=== PATIENT | male | born 1950 | race Caucasian/White ===

== ENCOUNTER 2017-12-02 22:30 | Emergency (ER) | payer OTHER ==
[2017-12-02 22:37] VITALS: BP 135/83; PULSE 112; TEMP 100.5; BMI 30.7
--- NOTE | 2017-12-02 22:38 | PDOC ---
History of Present Illness - General Chief Complaint: Respiratory Stated Complaint: COUGH,FEVER Time Seen by Provider: 12/02/17 22:32 History Source: Patient Exam Limitations: No Limitations - History of Present Illness Initial Comments: 12/02/17 22:38 This is a 67-year-old male who comes in complaining of cough, congestion and fever. Patient said symptoms began on 2 days ago with the cough and congestion. Patient went to an urgent care center today and was started on azithromycin. Patient now developed a fever this evening for the first time and so, as in because he is concerned it may be the influenza. Patient otherwise denies any complaints. PAST MEDICAL HISTORY: no significant history PAST SURGICAL HISTORY: no significant history FAMILY HISTORY: no pertinant history SOCIAL HISTORY: Pt lives with family and is employed. MEDICATIONS: reviewed ALLERGIES: As per nursing notes Review of Systems General: No fevers or chills, no weakness, no weight loss HEENT: No change in vision. No sore throat,. No ear pain CardioVascular: No chest pain or shortness of breath Respiratory:No cough, or wheezing. Gastrointestinal: no nausea, vomitting, diarrhea or constipation, No rectal bleeding Genitourinary: No dysuria, hematuria, or frequency Musculoskeletal: No joint or muscle pain or swelling Neurologic: No headache, vertigo, dizziness or loss of consciousness Psychiatric: nor depression Skin: No rashes or easy bruising Endocrine: no increased thirst or abnormal weight change Allergic: no skin or latex allergy All other systems reviewed and normal Exam: General: Well-nourished well-developed individual, no acute distress HEENT: Throat: Normal, tonsils normal, no erythema or exudate Neck: Supple, no meningeal signs, no lymphadenopathy Eyes::Pupils equal reactive and round, extraocular motion intact Chest: Nontender to palpation Cardiac: S1-S2 normal, regular rate and rhythm, no murmurs rubs or gallops Respiratory: Lungs clear to auscultation bilateral Extremities: Warm, dry, no cyanosis, clubbing, or edema Skin: No rashes Neuro: Alert and oriented x3, CN II - XII intact, nonfocal exam with normal strength, normal sensation, normal reflexes, normal gait, Psych: Normal mood and affect Assessment and plan: This is 7-year-old male comes in complaining of viral upper respiratory tract symptoms 2 days. Patient is on azithromycin already. Patient was at the urgent care center today and told it has a viral illness. Patient is concerned he may have the flu so a flu swab was sent and he will call in the morning for the results. If it is positive he will need a prescription for Tamiflu sent to his pharmacy Past History - Past Medical History Allergies/Adverse Reactions: Allergies Allergy/AdvReac Type Severity Reaction Status Date / Time amoxicillin [Amoxicillin] Allergy Verified 12/02/17 22:32 Home Medications: Ambulatory Orders NK [No Known Home Medication] 12/02/17 - Suicide/Smoking/Psychosocial Hx Smoking History: Unknown if ever smoked Have you smoked in the past 12 months: No Number of Cigarettes Smoked Daily: 0 Hx Alcohol Use: Yes Substance Use Type: None *DC/Admit/Observation/Transfer Diagnosis at time of Disposition: Viral upper respiratory illness - Discharge Dispostion Disposition: HOME Condition at time of disposition: Stable Admit: No - Referrals - Patient Instructions Additional Instructions: Alternate acetaminophen with Aleve every 4 hours as needed for fevers. Call in the morning [phone] for the result of your influenza test if it is positive we will call if prescription to your pharmacy for Tamiflu Continue your Z-Selwyn as prescribed. Return to the emergency department immediately with ANY new, persistent or worsening symptoms. Continue any medications as previously prescribed by your physician. You should follow up with your primary doctor as soon as possible regarding today's emergency department visit. . Please make sure your doctor reviews the results of your emergency evaluation. Thank you for coming to the Emergency Department today for your care. It was a pleasure to see you today. Please note that your evaluation is INCOMPLETE until you follow-up with your doctor. - Post Discharge Activity
== END 2017-12-02 22:44 | disposition home or self-care (01) ==
LOC: FER 22:30
DX: J06.9 Acute upper respiratory infection, unspecified (principal); B97.89 Other viral agents as the cause of diseases classified elsewhere
CPT/HCPCS: 87804; 99281-25

== ENCOUNTER 2019-04-29 02:25 | Inpatient (IN) | payer OTHER ==
[2019-04-29] MEDS: ALBUTEROL SO4 2.5/IPRATROPIUM 0.5 INH SOL 3 ML VIAL.NEB. NEB SCH ×5 (02:25→13:00)
--- NOTE | 2019-04-29 02:30 | PDOC ---
History of Present Illness - General Chief Complaint: Shortness of Breath Stated Complaint: DIFFICULTY BREATHING Time Seen by Provider: 04/29/19 02:28 History Source: Patient Exam Limitations: No Limitations - History of Present Illness Initial Comments: 04/29/19 02:37 This is a 68-year-old male who comes in complaining of some difficulty breathing. Patient said that he was diagnosed with bronchitis a few days ago and since then has had increasing difficulty breathing. On arrival in the emergency room patient was in extreme respiratory distress. Diaphoretic and tachypneic. Patient denies any prior medical history. Patient says he does not take any medications and is otherwise healthy. Allergies: as per nursing notes Past Medical History: none Social history: Lives with family. No smoking. No alcohol. No illicit drugs. Surgical history: None General: No fevers or chills, no weakness, no weight loss HEENT: No change in vision. No sore throat,. No ear pain CardioVascular: no chest discomfort. No shortness of breath Respiratory:No cough, or wheezing. Gastrointestinal: no nausea, vomiting, diarrhea or constipation, No rectal bleeding Genitourinary: No dysuria, hematuria, or frequency Musculoskeletal: No joint or muscle pain or swelling Neurologic: No headache, vertigo, dizziness or loss of consciousness Psychiatric: nor depression Skin: No rashes or easy bruising Endocrine: no increased thirst or abnormal weight change Allergic: no skin or latex allergy All other systems reviewed and normal Exam: General: Well-nourished well-developed individual, severe acute respiratory distress HEENT: Throat: Normal, tonsils normal, no erythema or exudate Neck: Supple, no meningeal signs, no lymphadenopathy Eyes::Pupils equal reactive and round, extraocular motion intact Chest: Nontender to palpation Cardiac: S1-S2 normal, regular rate and rhythm, no murmurs rubs or gallops, tachycardic Respiratory: Very poor air movement, diffuse expiratory wheezing in all breath sounds with expiratory phase much greater than inspiratory phase. + use of accessory muscles Abdomen: Soft, nondistended, normal bowel sounds, there is no tenderness on palpation diffusely Extremities: Warm, dry, no cyanosis, clubbing, or edema Skin: No rashes Neuro: Alert and oriented x3, CN II - XII intact, nonfocal exam with normal strength, normal sensation, normal reflexes, normal gait, Psych: Anxious l mood and affect 04/29/19 03:00 Patient improved respiratory rate is decreased patient is beginning to move air now still diffuse expiratory wheezing O2 sat now 99-100% on DuoNeb 03:20 Reevaluation patient's lungs much improved despite mild to moderate expiratory wheezing moving good air patient on nasal cannula 3 L with O2 sat 99%. 04/29/19 04:03 Patient much improved breathing comfortably with minimal wheezing 04/29/19 04:04 patient will be admitted to an inpatient telemetry bed Past History - Past Medical History Allergies/Adverse Reactions: Allergies Allergy/AdvReac Type Severity Reaction Status Date / Time amoxicillin [Amoxicillin] Allergy Verified 04/29/19 02:28 Home Medications: Ambulatory Orders Albuterol Sulfate Inhaler - [Ventolin Hfa Inhaler -] 1 - 2 inh PO QID 04/29/19 COPD: No - Suicide/Smoking/Psychosocial Hx Smoking History: Unknown if ever smoked Have you smoked in the past 12 months: No Number of Cigarettes Smoked Daily: 0 Hx Alcohol Use: Yes Drug/Substance Use Hx: No Substance Use Type: None ED Treatment Course - LABORATORY CBC & Chemistry Diagram: 04/29/19 02:41 04/29/19 02:41 *DC/Admit/Observation/Transfer Diagnosis at time of Disposition: Breathing difficulty - Discharge Dispostion Condition at time of disposition: Stable Decision to Admit order: Yes - Referrals - Patient Instructions - Post Discharge Activity
[2019-04-29] MEDS ORDERED: methylPREDNISolone NA SUCC 125 MG/2 ML VIAL IVPUSH ONE (02:44)
[2019-04-29 03:13] LABS: BASO % 0.6 % (0-2.0); EOS % 11.1 % (0-4.5); HEMATOCRIT 47.6 % (35.4-49); HEMOGLOBIN 15.1 GM/dL (11.7-16.9); LYMPH % 35.6 % (8-40); MCH 28.6 pg (25.7-33.7); MCHC 31.8 g/dl (32.0-35.9); MEAN PLT VOLUME 9.3 fl (7.5-11.1); MONO % 14.1 % (3.8-10.2); NEUT % 38.6 % (42.8-82.8); PLATELET COUNT 304 K/MM3 (134-434); RBC 5.29 M/mm3 (4.00-5.60); RDW 14.4 % (11.9-15.9); WHITE BLOOD COUNT 13.8 K/mm3 (4.0-10.0)
[2019-04-29 03:13] LABS: ARTERIAL BLD GAS O2 SATURATION 97.3 % (95-98); ARTERIAL BLOOD GAS BASE EXCESS -10.5 meq/l (-2-2); ARTERIAL BLOOD GAS PCO2 59.9 mmHg (35-45); ARTERIAL BLOOD GAS PO2 139 mmHg (80-105); CARBOXYHEMOGLOBIN 0.3 % (0-2)
[2019-04-29 03:16] LABS: ALLENS TEST POSITIVE
[2019-04-29 03:17] LABS: ARTERIAL BLOOD GAS pH 7.14 (7.35-7.45)
[2019-04-29 03:26] LABS: PROTHROMBIN TIME (PATIENT) 11.8 SEC (9.7-13.0)
[2019-04-29 03:35] LABS: ALBUMIN 4.2 g/dl (3.4-5.0); BILIRUBIN,TOTAL 0.6 mg/dL (0.2-1); BLOOD UREA NITROGEN 19.1 mg/dL (7-18); CALCIUM 9.1 mg/dL (8.5-10.1); CREATININE 1.4 mg/dL (0.55-1.3); POTASSIUM 3.8 mmol/L (3.5-5.1); TOT PROT 7.9 g/dl (6.4-8.2)
[2019-04-29 05:27] VITALS: BMI 31.9
[2019-04-29] MEDS ORDERED: ALBUTEROL SO4 2.5/IPRATROPIUM 0.5 INH SOL 3 ML VIAL.NEB. NEB SCH (08:00)
--- NOTE | 2019-04-29 08:06 | HP ---
CHIEF COMPLAINT: Shortness of breath PCP: None HISTORY OF PRESENT ILLNESS: 68 year-old male who has not sought regular medical care for >10 years and reports no significant past medical history. Patient presented to ED last night for evaluation of shortness of breath. Patient relates that on 04/01/19 he went to an urgent care center for a persistent cough. He was diagnosed with acute bronchitis and was given prescriptions for prednisone, an albuterol inhaler, and a z-pack. The patient took the prednisone and used the inhaler but did not take the z-elaine. Symptoms of cough and wheezing persisted until last night when he became acutely SOB prompting him to come to the ED. Patient denies fever, sweats, chills. Denies chest pain, palpitations, diaphoresis, orthopnea, and lower extremity edema. 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 Up until then he walked 12 miles per day on rounds. He has noticed decreased exercise tolerance over the past month. ER course was notable for: (1) BP 153/102, p138 (2) Troponin neg x 1 (3) WBC 13.8k, afebrile Recent Travel: No PAST MEDICAL HISTORY: None reported PAST SURGICAL HISTORY: None reported Social History: Smoking: no Alcohol: no Drugs: no Family History: Allergies amoxicillin [Amoxicillin] Allergy (Verified 04/29/19 02:28) HOME MEDICATIONS: Home Medications Medication Instructions Recorded Albuterol Sulfate Inhaler - 1 - 2 inh PO QID 04/29/19 [Ventolin Hfa Inhaler -] REVIEW OF SYSTEMS CONSTITUTIONAL: Absent: fever, chills, diaphoresis, generalized weakness, malaise, loss of appetite, weight change HEENT: Absent: rhinorrhea, nasal congestion, throat pain, throat swelling, difficulty swallowing, mouth swelling, ear pain, eye pain, visual changes CARDIOVASCULAR: Absent: chest pain, syncope, palpitations, irregular heart rate, lightheadedness , peripheral edema RESPIRATORY: +shortness of breath, cough, decreased exercise tolerance Absent: orthopnea, wheezing, stridor, hemoptysis GASTROINTESTINAL: Absent: abdominal pain, abdominal distension, nausea, vomiting, diarrhea, constipation, melena, hematochezia GENITOURINARY: Absent: dysuria, frequency, urgency, hesitancy, hematuria, flank pain, genital pain MUSCULOSKELETAL: Absent: myalgia, arthralgia, joint swelling, back pain, neck pain SKIN: Absent: rash, itching, pallor HEMATOLOGIC/IMMUNOLOGIC: Absent: easy bleeding, easy bruising, lymphadenopathy, frequent infections ENDOCRINE: Absent: unexplained weight gain, unexplained weight loss, heat intolerance, cold intolerance NEUROLOGIC: Absent: headache, focal weakness or paresthesias, dizziness, unsteady gait, seizure, mental status changes, bladder or bowel incontinence PSYCHIATRIC: Absent: anxiety, depression, suicidal or homicidal ideation, hallucinations. PHYSICAL EXAMINATION Vital Signs - 24 hr 04/29/19 04/29/19 04/29/19 02:28 02:30 03:01 Temperature Pulse Rate 138 H Pulse Rate [ 120 H 120 H Right] Respiratory 32 H 36 H 32 H Rate Blood Pressure 178/121 H Blood Pressure 153/102 H 153/102 H [Left] O2 Sat by Pulse 100 90 L 100 Oximetry (%) 04/29/19 04/29/19 04/29/19 03:04 03:59 05:07 Temperature 98.1 F 97.9 F Pulse Rate 120 H Pulse Rate [ 118 H Right] Respiratory 24 H 24 H Rate Blood Pressure 134/86 Blood Pressure 135/97 [Left] O2 Sat by Pulse 98 97 Oximetry (%) GENERAL: Awake, alert, and fully oriented, in no acute distress. HEAD: Normal with no signs of trauma. EYES: Pupils equal, round and reactive to light, extraocular movements intact, sclera anicteric, conjunctiva clear. No lid lag. EARS, NOSE, THROAT: Ears normal, nares patent, oropharynx clear without exudates. Moist mucous membranes. NECK: Normal range of motion, supple without lymphadenopathy, JVD, or masses. LUNGS: Diffuse rhonchi, + wheezing, + accessory muscle use, mildly dyspneic with speaking. HEART: Regular rate and rhythm, S1 and S2 ABDOMEN: Soft, nontender, protuberant MUSCULOSKELETAL: Normal range of motion at all joints. No bony deformities or tenderness. No CVA tenderness. UPPER EXTREMITIES: 2+ pulses, warm, well-perfused. No cyanosis. No clubbing. No peripheral edema. LOWER EXTREMITIES: 2+ pulses, warm, well-perfused. No calf tenderness. 2+edema at the ankles NEUROLOGICAL: Cranial nerves II-XII intact. Normal speech. Normal gait. Laboratory Results - last 24 hr 04/29/19 04/29/1919 02:30 02:41 02:41 WBC 13.8 H RBC 5.29 Hgb 15.1 Hct 47.6 MCV 90.0 MCH 28.6 MCHC 31.8 L RDW 14.4 Plt Count 304 MPV 9.3 Absolute Neuts (auto) 5.3 Neutrophils % 38.6 L Lymphocytes % 35.6 Monocytes % 14.1 H Eosinophils % 11.1 H Basophils % 0.6 Nucleated RBC % 0 PT with INR 11.80 INR 1.00 Anticoagulation Therapy Puncture Site ABG pH ABG pCO2 at Pt Temp ABG pO2 at Pt Temp ABG HCO3 ABG O2 Sat (Measured) ABG O2 Content ABG Base Excess Chris Test Carboxyhemoglobin Methemoglobin O2 Delivery Device Oxygen Flow Rate Vent Mode Vent Rate Mechanical Rate Pressure Support Vent Sodium Potassium Chloride Carbon Dioxide Anion Gap BUN Creatinine Est GFR (CKD-EPI)AfAm Est GFR (CKD-EPI)NonAf Random Glucose Calcium Total Bilirubin AST ALT Alkaline Phosphatase Creatine Kinase 365 H Creatine Kinase Index 1.0 CK-MB (CK-2) 3.7 H Troponin I < 0.02 Total Protein Albumin 04/29/19 04/29/19 04/29/19 02:41 03:00 03:00 WBC RBC Hgb Hct MCV MCH MCHC RDW Plt Count MPV Absolute Neuts (auto) Neutrophils % Lymphocytes % Monocytes % Eosinophils % Basophils % Nucleated RBC % PT with INR INR Anticoagulation Therapy No Result Required. Puncture Site No Result Required. ABG pH 7.14 L* ABG pCO2 at Pt Temp 59.9 H ABG pO2 at Pt Temp 139 H ABG HCO3 19.5 L ABG O2 Sat (Measured) 97.3 ABG O2 Content 21.3 ABG Base Excess -10.5 L Chris Test Positive Carboxyhemoglobin 0.3 Methemoglobin 0.3 O2 Delivery Device No Result Required. Oxygen Flow Rate No Result Required. Vent Mode No Result Required. Vent Rate No Result Required. Mechanical Rate No Result Required. Pressure Support Vent No Result Required. Sodium 143 Potassium 3.8 Chloride 108 H Carbon Dioxide 24 Anion Gap 12 BUN 19.1 H Creatinine 1.4 H Est GFR (CKD-EPI)AfAm 59.83 Est GFR (CKD-EPI)NonAf 51.62 Random Glucose 157 H Calcium 9.1 Total Bilirubin 0.6 AST 46 H ALT 42 Alkaline Phosphatase 94 Creatine Kinase 361 H Creatine Kinase Index 1.0 CK-MB (CK-2) 3.8 H Troponin I Total Protein 7.9 Albumin 4.2 ASSESSMENT/PLAN 68 year-old male who has not sought medical care for many years and reports no significant PMH, admitted for shortness of breath. Acute dyspnea --in setting of upper respiratory symptoms for past month treated with PO steroids and inhaler --concern for infectious process, started on Aztreonam and azithromycin; gómez cultured; flu negative --concern for PE: started on heparin drip; CTA pending --concern for ischemic heart diseaes: troponins trending upward 0.02-->0.27-- >0.37; ASA 325mg x 1; continue daily ASA 81mg; if CTA is negative for PE, give Plavix loading dose 600mg per cardiology --concern for CHF: Lasix IV 80mg x 1 given -->1.6L output; Echo: poor diagnostic study; borderline for LV dilation and hypertrophy with possible anteroseptal hypo/akinesis, LV function mildly reduced EF 45%; RV normal; valves not well-visualized; BNP pending; Lasix PRN --concern for lung mass: tracheal deviation on CXR Dispo: transfer to [facility] telemetry for chest CTA and for continued care ( [place] scanner under repair). Only relative is sister Lissa Salvador who lives in [place]. Full code. Visit type - Emergency Visit Emergency Visit: Yes ED Registration Date: 04/29/19 Care time: The patient presented to the Emergency Department on the above date and was hospitalized for further evaluation of their emergent condition. - New Patient This patient is new to me today: Yes Date on this admission: 04/29/19 - Critical Care Critical Care patient: Yes Total Critical Care Time (in minutes): 240 Critical Care Statement: The care of this patient involved high complexity decision making to prevent further life threatening deterioration of the patient 's condition and/or to evaluate & treat vital organ system(s) failure or risk of failure.
[2019-04-29] MEDS ORDERED: methylPREDNISolone NA SUCC 40 MG/1 ML VIAL IVPUSH SCH (08:30)
[2019-04-29] MEDS ORDERED: DEXTROSE 5%-WATER 100 ML IVPB ONE ×2 (09:32→13:35)
[2019-04-29] MEDS ORDERED: AZTREONAM 2 GM VIAL (RESTRICTED TO ID) ONE ×2 (09:33→13:35)
[2019-04-29] MEDS: methylPREDNISolone NA SUCC 40 MG/1 ML VIAL IVPUSH SCH ×2 (09:50→19:22)
[2019-04-29] MEDS: AZITHROMYCIN IVPB 500 MG/250 ML BAG IVPB SCH (09:50)
[2019-04-29] MEDS ORDERED: AZITHROMYCIN IVPB 500 MG in DEXTROSE 5%-WATER - 250 ML IVPB SCH (10:00)
[2019-04-29] MEDS ORDERED: AZTREONAM 2 GM in DEXTROSE 5%-WATER 100 ML IVPB SCH (10:00)
[2019-04-29] MEDS ORDERED: ASPIRIN 81 MG CHEWABLE TABLETS PO ONE (10:45)
[2019-04-29] MEDS ORDERED: POTASSIUM CHLORIDE TABS 20 MEQ TABLET.ER (FP) PO ONE (10:45)
[2019-04-29] MEDS ORDERED: FUROSEMIDE 40 MG/4 ML INJECTABLE VIAL IVPUSH ONE (10:45)
[2019-04-29] MEDS: AZTREONAM 2 GM in DEXTROSE 5%-WATER 100 ML IVPB SCH ×2 (11:18→20:33)
[2019-04-29 11:34] LABS: URINE MUCUS 1+
--- NOTE | 2019-04-29 12:43 | CON.ID ---
Consult - Alcohol/Substance Use Hx Alcohol Use: Yes (OCCASIONAL) - Smoking History Smoking history: Unknown if ever smoked Have you smoked in the past 12 months: No Aproximately how many cigarettes per day: 0 Home Medications - Allergies Allergies/Adverse Reactions: Allergies Allergy/AdvReac Type Severity Reaction Status Date / Time amoxicillin [Amoxicillin] Allergy Verified 04/29/19 02:28 - Home Medications Home Medications: Ambulatory Orders Albuterol Sulfate Inhaler - [Ventolin Hfa Inhaler -] 1 - 2 inh PO QID 04/29/19 Physical Exam Vital Signs: Vital Signs Temperature 98.4 F 04/29/19 12:00 Pulse Rate 119 H 04/29/19 12:00 Respiratory Rate 20 04/29/19 12:00 Blood Pressure 132/92 04/29/19 12:00 O2 Sat by Pulse Oximetry (%) 99 04/29/19 10:00 Labs: CBC, BMP 04/29/19 02:41 04/29/19 02:41
[2019-04-29 12:51] LABS: ARTERIAL BLD GAS O2 SATURATION 99.1 % (95-98); ARTERIAL BLOOD GAS BASE EXCESS -0.6 meq/l (-2-2); ARTERIAL BLOOD GAS PCO2 36.5 mmHg (35-45); ARTERIAL BLOOD GAS PO2 136 mmHg (80-105); ARTERIAL BLOOD GAS pH 7.41 (7.35-7.45); CARBOXYHEMOGLOBIN 0.8 % (0-2)
--- NOTE | 2019-04-29 13:48 | EKG ---
Test Reason : Blood Pressure : / mmHG Vent. Rate : 118 BPM Atrial Rate : 118 BPM P-R Int : 180 ms QRS Dur : 096 ms QT Int : 320 ms P-R-T Axes : 078 007 029 degrees QTc Int : 448 ms SINUS TACHYCARDIA WITH OCCASIONAL PREMATURE VENTRICULAR COMPLEXES AND FUSION COMPLEXES NONSPECIFIC ST ABNORMALITY ABNORMAL ECG WHEN COMPARED WITH ECG OF 29-APR-2019 02:55, FUSION COMPLEXES ARE NOW PRESENT PREMATURE VENTRICULAR COMPLEXES ARE NOW PRESENT Confirmed by MD KIMBERLY, ZEKE ([id number]) on 04/29/2019 1:48:25 PM Referred By: Ward CASTANEDA Confirmed By:ZEKE HARRIS MD
--- NOTE | 2019-04-29 13:49 | EKG ---
Test Reason : Blood Pressure : / mmHG Vent. Rate : 126 BPM Atrial Rate : 126 BPM P-R Int : 176 ms QRS Dur : 096 ms QT Int : 304 ms P-R-T Axes : 068 002 022 degrees QTc Int : 440 ms SINUS TACHYCARDIA ABNORMAL ECG NO PREVIOUS ECGS AVAILABLE Confirmed by MD KIMBERLY, ZEKE ([id number]) on 04/29/2019 1:48:56 PM Referred By: Confirmed By:ZEKE HARRIS MD
[2019-04-29] MEDS ORDERED: HEPARIN NA (PORCINE) 5,000 UNITS/ML 1ML VIAL IVPUSH PRN ×2 (13:51)
[2019-04-29] MEDS ORDERED: HEPARIN INFUSION - 25,000 UNITS/500 ML INFUS.BAG IVPB SCH (14:00)
[2019-04-29] MEDS ORDERED: HEPARIN NA (PORCINE) 5,000 UNITS/ML 1ML VIAL IVPUSH ONE (14:15)
--- NOTE | 2019-04-29 14:41 | ECHO ---
Name: DEANKURT Exam:Adult Echocardiogram Study Date: 04/29/2019 01:17 PM Age: 68 yrs Reason For Study: resp failure Height: 66 in Weight: 198 lb BSA: 2.0 m2 MMode/2D Measurements & Calculations IVSd: 1.2 cm Ao root diam: 4.0 cm LVIDd: 5.6 cm LA dimension: 3.5 cm LVIDs: 4.4 cm LVPWd: 1.3 cm EDV(Teich): 156.1 ml LVOT diam: 2.0 cm ESV(Teich): 89.2 ml Doppler Measurements & Calculations MV E max ted: 93.6 cm/sec MV dec slope: 1184 cm/sec2 Ao V2 max: 119.1 cm/sec LV V1 max P.1 mmHg Ao max P.7 mmHg LV V1 max: 100.8 cm/sec MIKE(V,D): 2.7 cm2 MR max ted: 265.0 cm/sec PA V2 max: 89.0 cm/sec MR max P.3 mmHg PA max P.2 mmHg Procedure A limited two-dimensional transthoracic echocardiogram was performed (2D). Only parasternal long axis view are adequate. Left Ventricle Borderline for left ventricular dillatation and hypertrophy with possible anteroseptal hypo/akinesis. Left ventricular function appears mildly reduced. LVEF = 45%. E/A reversal consistent with but not diagnos tic of poor LV compliance. Right Ventricle The right ventricle is not well visualized. The right ventricle is grossly normal size. The right joey tricular systolic function is grossly normal. Atria Normal left and right atrial size and function. Mitral Valve The mitral valve is not well visualized. Tricuspid Valve The tricuspid valve is not well visualized. There was insufficient TR detected to calculate RV systol ic pressure. Aortic Valve The aortic valve is not well visualized. There is mild aortic sclerosis.;. Pulmonic Valve The pulmonic valve is not well visualized. Great Vessels The aortic root is not well visualized. Pericardium/Pleura There is no pericardial effusion. Interpretation Summary A limited two-dimensional transthoracic echocardiogram was performed (2D). Only parasternal long axis view are adequate. Borderline for left ventricular dillatation and hypertrophy with possible anteroseptal hypo/akinesis. Left ventricular function appears mildly reduced. LVEF = 45% The right ventricle is not well visualized. The right ventricle is grossly normal size. The right joey tricular systolic function is grossly normal. The aortic valve is not well visualized. The mitral valve is not well visualized. MD Debbie Tanner 04/29/2019 02:40 PM
--- NOTE | 2019-04-29 15:09 | CON.CARD ---
Consult Consult Specialty:: Cardiology Referred by:: Micah Bahena Reason for Consultation:: elevated TnI - History of Present Illness Chief Complaint: SOB History of Present Illness: 68M with remote hx of seizure disorder present to ER for evaluation of acutely worsened SOB last evening. HPI begins several weeks ago when he was diagnosed w/ bronchitis and treated with steroids/ abx and nebs by urgent care. Symptoms persisted w/ mild SANCHEZ, dry cough and culminated in severe SOB last evening. Denies fever/chills although cough became productive green phlegm today. Denies chest pain, palpitations, edema, PND or orthopnea. No prolonged air or car trave- several short flights (under 3 hours) in January and February. No prior cardiac history. Hospital course thus far notable for Sinus tachycardia, CXR with possible RLL/ RML infiltrate and tracheal deviation to right. He was given Lasix 80mg IV x 1 dose and started on UFH gtts after second TnI shawn slightly to intermediate range. Denies any bleeding history/ peptic ulcer disease. Has not seen dungeon master in many years. 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 Echo was done, EF 45%. Possible anteroseptal wall motion abnormality. CXR reviewed: apart from RML/RLL possible infiltrate and tracheal deviation no significant increased pulmonary venous congestion. He has been using Albuterol MDI often because he has noted "wheezing" at home. - History Source History Provided By: Patient Limitations to Obtaining History: No Limitations - Past Medical History MANAGER UI: Yes: Seizure, Other (no seizures since 1970s) Cardio/Vascular: Yes: Other (Mitral Valve prolapse diagnosed years ago, not appreciated on current Echo) Pulmonary: No: Asthma, Bronchitis, Cancer, COPD, O2 Dependent, Pneumonia, Previously Intubated, Pulmonary Embolus, Pulmonary Fibrosis, Sleep Apnea, Other Gastrointestinal: No: Ascites, Cancer, Constipation, Crohn's Disease, Diverticulitis, Diverticulosis, Esophageal Varices, Gastritis, GERD, GI Bleed, Hemorrhoids, Hiatal Hernia, Inflamatory Bowel Disease, Irritable Bowel Disease, Pancreatitis, Peptic Ulcer Disease, Ulcerative Colitis, Other Hepatobiliary: No: Cirrhosis, Cholelithiasis, Cholecystitis, Choledocholithiasis , Hepatitis A, Hepatitis B, Hepatitis C, Other Renal/: No: Renal Failure, Renal Inusuff, BPH, Cancer, Hematuria, Hemodialysis , Neurogenic Bladder, Renal Calculi, UTI, Other Heme/Onc: No: Anemia, B12 Deficiency, Bleeding Disorder, Cancer, Current Chemotherapy, Current Radiation Therapy, Hemochromatosis, Hypercoaguable State, Myeloproliferative Synd, Sickle Cell Disease, Sickle Cell Trait, Thrombocytopenia, Other Infectious Disease: No: AIDS, C-Diff, Herpes Zoster, HIV, MRSA, STD's, Tuberculosis, VREF, Other Psych: No: Addictions, Anxiety, Bipolar, Depression, Panic, Psychosis, Schizophrenia, Other Musculoskeletal: No: Bursitis, Chronic low back pain, Hemiparesis, Hemiplegia, Osteoarthritis, Paraplegia, Other Rheumatology: No: Fibromyalgia, Gout, Lupus, Rheumatoid Arthritis, Sarcoidosis, Vasculitis, Other ENT: No: Allergic Rhinitis, Sinusitis, Other Endocrine: No: Jese's Disease, [place]'s Disease, Diabetes Insipidus, Diabetes Mellitus, Hyperparathyroidism, Hyperthyroidism, Hypothyroidism, Osteopenia, SIADH, Other Dermatology: No: Basal Cell, Cellulitis, Eczema, Melanoma, Psoriasis, Squamous Cell, Other - Past Surgical History Past Surgical History: No: None, AAA Repair, AICD, Amputation, Appendectomy, Arthrosocopy, AV Fistula/Graft, Bariatric Surgery, Breast Biopsy, Bypass, CABG, Carotid Endarterectomy, Cataract Removal, Cholecystectomy, Colectomy, Colonoscopy, Colostomy, Craniotomy, , Cystectomy, Hernia Repair, Hysterectomy, Ileal Conduit, Ileosotomy, Joint Replacement, Kidney Transplant, Laminectomy, Liver Transplant, Mastectomy, Nephrectomy, Oopherectomy, Orchiectomy, Permanent Pacemaker, Prostatectomy, Splenectomy, Stent, Thoracotomy , TURP, Tonsillectomy, Tubal Ligation, Upper Endoscopy, Valve Replacement, Vasectomy, Vein Stripping/Ligation - Alcohol/Substance Use Hx Alcohol Use: Yes (OCCASIONAL) History of Substance Use: reports: None - Smoking History Smoking history: Unknown if ever smoked Have you smoked in the past 12 months: No Aproximately how many cigarettes per day: 0 - Social History Usual Living Arrangement: Alone Place of : [facility] History of Recent Travel: No (no prolonged air/car travel) Home Medications - Allergies Allergies/Adverse Reactions: Allergies Allergy/AdvReac Type Severity Reaction Status Date / Time amoxicillin [Amoxicillin] Allergy Verified 04/29/19 02:28 - Home Medications Home Medications: Ambulatory Orders Albuterol Sulfate Inhaler - [Ventolin Hfa Inhaler -] 1 - 2 inh PO QID 04/29/19 Family Disease History - Family Disease History Family History: Unremarkable (not pertinent to this presentation) Review of Systems - Review of Systems Constitutional: reports: No Symptoms Eyes: reports: No Symptoms HENT: reports: No Symptoms Neck: reports: No Symptoms Cardiovascular: reports: Shortness of Breath Respiratory: reports: Cough, SOB, SOB on Exertion, Wheezing Gastrointestinal: denies: No Symptoms, Abdominal Pain, Bloating, Constipation, Diarrhea, Dysphagia, Indigestion, Melena, Nausea, Rectal Bleeding, Vomiting, Vomiting Blood, Other Genitourinary: denies: No Symptoms, Burning, Discharge, Dysuria, Flank Pain, Frequency, Hematuria, Incontinence, Lesions, Menses, Pain, Testicular Mass, Testicular Pain, Testicular Swelling, Urgency, Vaginal Bleeding, Other Breasts: denies: No Symptoms Reported, See HPI, Breast Implants, Discharge from Nipple, Lumps, Pain, Skin Changes, Other Musculoskeletal: denies: No Symptoms, Back Pain, Crepitus, Decreased ROM, Extremity Pain, Joint Pain, Joint Swelling, Muscle Pain, Muscle Cramps, Muscle Weakness, Other Integumentary: denies: No Symptoms, Blister, Bruising, Change in Color, Eczema, Erythema, Incision, Lesions, Lump, Pallor, Pruritis, Rash, Wound, Other Neurological: denies: No Symptoms, Change in LOC, Change in Speech, Confusion, Dizziness, Headache, Incoordination, Numbness, Parasthesia, Pre-Existing Deficit , Seizure, Syncope, Tremors, Unsteady Gait, Weakness, Other Endocrine: denies: No Symptoms, Excessive Sweating, Flushing, Increased Hunger, Increased Thirst, Intolerance to Cold, Intolerance to Heat, Unexplained Weight Gain, Unexplained Weight Loss, Other Hematology/Lymphatic: denies: No Symptoms, Easily Bruised, Excessive Bleeding, Swollen Glands, Other Psychiatric: denies: No Symptoms, Altered Sleep Pattern, Anxiety, Depression, Hallucinations, Panic, Paranoia, Suicidal, Other Vital Signs: Vital Signs Temperature 98.9 F 04/29/19 13:54 Pulse Rate 112 H 04/29/19 13:54 Respiratory Rate 04/29/19 13:54 Blood Pressure 134/90 04/29/19 13:54 O2 Sat by Pulse Oximetry (%) 96 04/29/19 13:54 Constitutional: Yes: No Distress, Calm Eyes: Yes: Conjunctiva Clear, EOM Intact HENT: Yes: Atraumatic, Normocephalic Respiratory: Yes: Other (scattered rhonchi and rales right base mostly clear w/ cough and deep breathing) Gastrointestinal: Yes: Soft (nontender) Cardiovascular: Yes: Regular Rate and Rhythm JVD: No Carotid Bruit: No Heart Sounds: Yes: S1, S2 (RRR, no M/R/G) Edema: No Peripheral Pulses WNL: Yes Neurological: Yes: Alert, Oriented ...Motor Strength: WNL Psychiatric: Yes: WNL - Other Data Labs, Other Data: CBC, BMP 04/29/19 02:41 04/29/19 02:41 INR, PTT INR 1.00 (0.83-1.09) 04/29/19 02:41 Troponin, BNP 04/29/19 04/29/19 02:30 09:10 Troponin I < 0.02 0.27 H Troponin, BNP 04/29/19 04/29/19 02:30 09:10 Troponin I < 0.02 0.27 H Laboratory Tests 04/29/19 04/29/19 04/29/19 03:00 03:00 09:08 ESR ABG pH 7.14 L* ABG pCO2 at Pt Temp 59.9 H ABG pO2 at Pt Temp 139 H ABG O2 Content 21.3 Lactic Acid Creatine Kinase 361 H Creatine Kinase Index 1.0 CK-MB (CK-2) 3.8 H Troponin I C-Reactive Protein Influenza A (Rapid) Negative Influenza B (Rapid) Negative 04/29/19 04/29/19 04/29/19 09:10 09:10 09:10 ESR 16 ABG pH ABG pCO2 at Pt Temp ABG pO2 at Pt Temp ABG O2 Content Lactic Acid Creatine Kinase Creatine Kinase Index CK-MB (CK-2) Troponin I 0.27 H C-Reactive Protein 0.9 H Influenza A (Rapid) Influenza B (Rapid) 04/29/19 04/29/19 11:50 12:50 ESR ABG pH 7.41 ABG pCO2 at Pt Temp 36.5 ABG pO2 at Pt Temp 136 H ABG O2 Content 22.7 H Lactic Acid 3.8 H* Creatine Kinase Creatine Kinase Index CK-MB (CK-2) Troponin I C-Reactive Protein Influenza A (Rapid) Influenza B (Rapid) Microbiology Sinus tach 118bpm, VPCs Echo: Report Reviewed Imaging - Results X-ray: Image Reviewed EKG: Image Reviewed Assessment/Plan Echo: EF 45%, anteroseptal HK. No obvious RV enlargement or PHTN. No pericardial effusion. IMP: 1. Acutely worsened dyspnea in setting of recent "URI": concern for Pulmonary Embolism, possible PNA. Other possibilities include CHF (though CXR not really suggestive). 2. Sinus tachycardia likely secondary to above processes 3. Elevated TnI REC: 1. Agree w/ transfer to telemetry at [facility] and chest CTA to r/o pulmonary embolism, PNA and possible lung mass (tracheal deviation on CXR). CT scanner not functioning at [place]. 2. While awaiting scan and trending cardiac enzymes, continue UFH gtts. 3. ASA 81mg daily. 4. Supplimental O2. 5. Abx as per ID 6. Check BNP and consider additional IV Lasix based on clinical course, CT results and BNP. Thank you.
--- NOTE | 2019-04-29 17:35 | HOSP ---
Physical Examination Vital Signs: Vital Signs Temperature 98.9 F 04/29/19 13:54 Pulse Rate 110 H 04/29/19 16:44 Respiratory Rate 20 04/29/19 16:44 Blood Pressure 125/78 04/29/19 16:44 O2 Sat by Pulse Oximetry (%) 96 04/29/19 13:54 Labs: CBC, BMP 04/29/19 02:41 04/29/19 02:41 Hospitalist Encounter Assessment: Received patient via EMS from [facility] Patient transfered to [facility] for ICU management. On NC- 96% and hemodynamically stable. CTA ordered and pending. Spoke with radiology about their concern of Cr level 1.4. Can not hydrate prior because of increased pulmonary vascular congestion on CXR. Explained to the patient that it is unlikely that the IV contrast can cause NAZARIO however it is a possibility. The benefits of obtaining the CTA out weight the risks and we will continue to closely monitor renal function Critical Care Total Critical Care Time (in minutes): 30 Critical Care Statement: The care of this patient involved high complexity decision making to prevent further life threatening deterioration of the patient 's condition and/or to evaluate & treat vital organ system(s) failure or risk of failure.
[2019-04-29] MEDS ORDERED: PT OWN MED DRAWER 7, Y5N ONE (19:19)
[2019-04-29 19:41] LABS: BASO % 0.4 % (0-2.0); EOS % 0.1 % (0-4.5); HEMATOCRIT 43.2 % (35.4-49); HEMOGLOBIN 14.6 GM/dL (11.7-16.9); LYMPH % 6.5 % (8-40); MCH 29.3 pg (25.7-33.7); MCHC 33.9 g/dl (32.0-35.9); MEAN CELL VOLUME 86.4 fl (80-96); MEAN PLT VOLUME 8.9 fl (7.5-11.1); MONO % 2.5 % (3.8-10.2); NEUT % 90.5 % (42.8-82.8); PLATELET COUNT 258 K/MM3 (134-434); RDW 14.1 % (11.9-15.9); WHITE BLOOD COUNT 8.5 K/mm3 (4.0-10.0)
[2019-04-29 19:52] LABS: INR 1.11 (0.83-1.09); PROTHROMBIN TIME (PATIENT) 13.1 SEC (9.7-13.0)
[2019-04-29 20:08] LABS: ALBUMIN 3.8 g/dl (3.4-5.0); BILIRUBIN,TOTAL 0.5 mg/dL (0.2-1); CALCIUM 9.2 mg/dL (8.5-10.1); CREATININE 1.1 mg/dL (0.55-1.3); MAGNESIUM 2.3 mg/dL (1.8-2.4); POTASSIUM 3.8 mmol/L (3.5-5.1); TOT PROT 7.2 g/dl (6.4-8.2)
[2019-04-29 20:31] LABS: ACTIVATED PTT 122.6 SECONDS (25.2-36.5)
[2019-04-29] MEDS ORDERED: CLOPIDOGREL BISULFATE 300 MG TABLET PO ONE (22:33)
--- NOTE | 2019-04-29 22:46 | HOSP ---
Physical Examination Vital Signs: Vital Signs Temperature 98.9 F 04/29/19 13:54 Pulse Rate 110 H 04/29/19 16:44 Respiratory Rate 20 04/29/19 16:44 Blood Pressure 125/78 04/29/19 16:44 O2 Sat by Pulse Oximetry (%) 96 04/29/19 19:27 Labs: CBC, BMP 04/29/19 19:00 04/29/19 18:58 Hospitalist Encounter Assessment: PTT >400. Heparin held and repeat PTT 122. Heparin gtt restarted as per protocol @ 850u/hr CTA showed no gross filling defects. As per Dr Hyde will bolus Plavix 600mg PO. Bladder on CT was distended to 17.5cm-pt refused benitez and voiding 600cc/hr Will continue to monitor in ICU for bleeding and/or worsening pulmonary status.
[2019-04-30] MEDS: methylPREDNISolone NA SUCC 40 MG/1 ML VIAL IVPUSH SCH ×3 (00:35→19:06)
[2019-04-30] MEDS: AZTREONAM 2 GM in DEXTROSE 5%-WATER 100 ML IVPB SCH ×2 (01:09→10:44)
[2019-04-30 04:38] LABS: MCHC 33.6 g/dl (32.0-35.9); MEAN PLT VOLUME 8.6 fl (7.5-11.1)
[2019-04-30 04:52] LABS: BASO % 0.3 % (0-2.0); HEMATOCRIT 44.7 % (35.4-49); LYMPH % 5.6 % (8-40); MEAN CELL VOLUME 86.3 fl (80-96); MONO % 4.2 % (3.8-10.2); NEUT % 89.9 % (42.8-82.8); PLATELET COUNT 270 K/MM3 (134-434); RBC 5.18 M/mm3 (4.00-5.60); RDW 14.2 % (11.9-15.9); WHITE BLOOD COUNT 11.3 K/mm3 (4.0-10.0)
[2019-04-30 05:07] LABS: ALBUMIN 3.7 g/dl (3.4-5.0); BILIRUBIN,TOTAL 0.6 mg/dL (0.2-1); BLOOD UREA NITROGEN 21.4 mg/dL (7-18); CALCIUM 8.9 mg/dL (8.5-10.1); CREATININE 1.1 mg/dL (0.55-1.3); MAGNESIUM 2.6 mg/dL (1.8-2.4); POTASSIUM 3.9 mmol/L (3.5-5.1); TOT PROT 7.1 g/dl (6.4-8.2)
--- NOTE | 2019-04-30 07:44 | PN ---
Progress Note, Physician Chief Complaint: feeling better today History of Present Illness: 68 year-old male who has not sought regular medical care for >10 years and reports no significant past medical history. Patient presented to ED last night for evaluation of shortness of breath. Patient relates that on 04/01/19 he went to an urgent care center for a persistent cough. He was diagnosed with acute bronchitis and was given prescriptions for prednisone, an albuterol inhaler, and a z-pack. The patient took the prednisone and used the inhaler but did not take the z-elaine. Symptoms of cough and wheezing persisted until 04/28 when he became acutely SOB prompting him to come to the ED. Patient denies fever, sweats , chills. Denies chest pain, palpitations, diaphoresis, orthopnea, and lower extremity edema. 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 Up until then he walked 12 miles per day on rounds. He has noticed decreased exercise tolerance over the past month. - Current Medication List Current Medications: Active Medications Aspirin (Asa -) 81 mg PO DAILY [facility] Heparin Sodium (Porcine) (Heparin -) 1,000 unit IVPUSH PRN PRN PRN Reason: Heparin Heparin Sodium (Porcine) (Heparin -) 5,000 unit IVPUSH PRN PRN PRN Reason: Heparin Azithromycin (Zithromax 500mg Ivpb (Pre-Docked)) 500 mg in 250 mls @ 250 mls/ hr IVPB DAILY [facility] Last Admin: 04/29/19 09:50 Dose: 250 mls/hr Aztreonam 2 gm/ Dextrose 100 mls @ 100 mls/hr IVPB Q8H-IV [facility] Last Admin: 04/30/19 01:09 Dose: 100 mls/hr Heparin Sodium/Dextrose (Heparin Infusion -) 25,000 units in 500 mls @ 20 mls/ hr IVPB TITR [facility]; Protocol Last Titration: 04/29/19 22:16 Dose: 850 units/hr, 17 mls/hr Methylprednisolone Sodium Succinate (Solu-Medrol -) 40 mg IVPUSH Q8H [facility] Last Admin: 04/30/19 00:35 Dose: 40 mg - Objective Vital Signs: Vital Signs Temperature 98.4 F 04/30/19 05:00 Pulse Rate 77 04/30/19 05:00 Respiratory Rate 14 04/30/19 05:00 Blood Pressure 118/75 04/30/19 05:00 O2 Sat by Pulse Oximetry (%) 96 04/29/19 22:00 Constitutional: Yes: Well Nourished, No Distress, Calm Eyes: Yes: WNL, Conjunctiva Clear, EOM Intact HENT: Yes: WNL, Atraumatic, Normocephalic Neck: Yes: WNL, Supple, Trachea Midline Cardiovascular: Yes: WNL, Regular Rate and Rhythm Respiratory: Yes: WNL, Regular, CTA Bilaterally, Diminished (at bases) Gastrointestinal: Yes: WNL, Normal Bowel Sounds, Abdomen, Obese ...Rectal Exam: Yes: Deferred Genitourinary: Yes: WNL Musculoskeletal: Yes: WNL Extremities: Yes: WNL Edema: Yes Edema: LLE: Trace, RLE: Trace Peripheral Pulses WNL: Yes Integumentary: Yes: WNL Neurological: Yes: WNL, Alert, Oriented ...Motor Strength: WNL Psychiatric: Yes: WNL, Alert, Oriented Labs: CBC, BMP 04/30/19 04:00 04/30/19 04:00 INR, PTT INR 1.11 (0.83-1.09) H 04/29/19 19:00 - ....Imaging Chest X-ray: Report Reviewed (Single AP view of the chest reveals an apical lordotic projection, normal heart, normal aorta and normal eber. The lungs are expanded with no sign of infiltrate or failure. There is some increased density seen by the anterior aspect of the left first rib and this is unchanged from the previous study dated 11/29/2012. This is related to the anterior rib margin. Costophrenic angles are sharp. The soft tissues are intact. There are degenerative spine and shoulder changes. Correlation recommended.), Image Reviewed Cat Scan: Report Reviewed (CTA showed no gross filling defects.) Problem List - Problems (1) Elevated troponin I level Assessment/Plan: elevated troponins in setting of tachycardia and tracheal deviation started on UFH infusion at [facility] according to protocol stopped this morning as per Dr Akers trended Troponins overnight with peak of .43, tending down to .23 no further need to trend TTE EF 45%, anteroseptal HK. No obvious RV enlargement or PHTN. No pericardial effusion. continue ASA and statin, plavix dc'd Code(s): R74.8 - ABNORMAL LEVELS OF OTHER SERUM ENZYMES (2) Respiratory failure Assessment/Plan: maintain O2 % >92 on NC @ 2L continue inhaled broncholdilators stopped abx-will continue to monitor Code(s): J96.90 - RESPIRATORY FAILURE, UNSP, UNSP W HYPOXIA OR HYPERCAPNIA (3) Prophylactic measure Assessment/Plan: FEN low fat low chosterol diet no IVF DVT off UFH infusion continue asa early ambulation Dispo maintain as inpatient on telemetry in ICU full code discharge planning Code(s): Z29.9 - ENCOUNTER FOR PROPHYLACTIC MEASURES, UNSPECIFIED (4) Tracheal deviation Assessment/Plan: tracheal deviation seen on CXR, no mention on CT will obtain neck/soft tissue CT to assess for mass no difficulty swallowing but change in phonation will continue steroids and taper to off if no mass is seen on CT Code(s): J39.8 - OTHER SPECIFIED DISEASES OF UPPER RESPIRATORY TRACT (5) Phonation disorder Assessment/Plan: CT neck/soft tissue speech and swallow consultation if dysphagia occurs Code(s): R49.0 - DYSPHONIA (6) Breathing difficulty Assessment/Plan: maintain O2 sats >92% for further need to trend BNP bronchodilators prn Code(s): R06.89 - OTHER ABNORMALITIES OF BREATHING (7) CAD (coronary artery disease) Assessment/Plan: Coronary calcifications on CTA chest, echo with EF 45% with anteroseptal HK continue aspirin, start statin recommend stress test prior to discharge for evaluation for CAD Code(s): I25.10 - ATHSCL HEART DISEASE OF [place] CORONARY ARTERY W/O ANG PCTRS Visit type - Emergency Visit Emergency Visit: Yes ED Registration Date: 04/29/19 Care time: The patient presented to the Emergency Department on the above date and was hospitalized for further evaluation of their emergent condition. - New Patient This patient is new to me today: Yes Date on this admission: 04/30/19 - Critical Care Critical Care patient: Yes Total Critical Care Time (in minutes): 30 Critical Care Statement: The care of this patient involved high complexity decision making to prevent further life threatening deterioration of the patient 's condition and/or to evaluate & treat vital organ system(s) failure or risk of failure. - Discharge Referral Referred to [facility] No
[2019-04-30] MEDS: ASPIRIN 81 MG CHEWABLE TABLETS PO SCH (09:22)
[2019-04-30] MEDS: AZITHROMYCIN IVPB 500 MG/250 ML BAG IVPB SCH (09:22)
[2019-04-30] MEDS ORDERED: PT OWN MED DRAWER 7, Y5N ONE ×2 (09:35→10:43)
[2019-04-30] MEDS ORDERED: CLOPIDOGREL BISULFATE 75 MG TABLET (FP) PO SCH (10:00)
[2019-04-30] MEDS ORDERED: AZTREONAM 2 GM in DEXTROSE 5%-WATER - 100 ML IVPB SCH (10:00)
--- NOTE | 2019-04-30 10:22 | PN ---
Progress Note (short form) - Note Progress Note: s: breathing feels better. no chest pain, palps, dizziness. no history of smoking Aspirin (Asa -) 81 mg PO DAILY [facility] Last Admin: 04/30/19 09:22 Dose: 81 mg Atorvastatin Calcium (Lipitor -) 80 mg PO HS [facility] Azithromycin (Zithromax 500mg Ivpb (Pre-Docked)) 500 mg in 250 mls @ 250 mls/ hr IVPB DAILY [facility] Last Admin: 04/30/19 09:22 Dose: 250 mls/hr Aztreonam 2 gm/ Dextrose 100 mls @ 100 mls/hr IVPB Q8H-IV [facility] Last Admin: 04/30/19 01:09 Dose: 100 mls/hr Methylprednisolone Sodium Succinate (Solu-Medrol -) 40 mg IVPUSH Q8H [facility] Last Admin: 04/30/19 09:22 Dose: 40 mg Vital Signs Period Temp Pulse Resp BP Sys/Cortes Pulse Ox Last 24 Hr 97.6 F-98.9 F 72-119 14-20 114-134/74-92 96-98 Constitutional: Yes: No Distress, Calm Eyes: Yes: Conjunctiva Clear, EOM Intact HENT: Yes: Atraumatic, Normocephalic Respiratory: Yes: Other (scattered rhonchi) Gastrointestinal: Yes: Soft (nontender) Cardiovascular: Yes: Regular Rate and Rhythm JVD: No Carotid Bruit: No Heart Sounds: Yes: S1, S2 (RRR, no M/R/G) Edema: No Peripheral Pulses WNL: Yes Neurological: Yes: Alert, Oriented Psychiatric: Yes: not agitated Sinus tach 118bpm, VPCs Echo: Report Reviewed Imaging - Results X-ray: Image Reviewed EKG: Image Reviewed Assessment/Plan Echo: EF 45%, anteroseptal HK. No obvious RV enlargement or PHTN. No pericardial effusion. IMP: 1. Acutely worsened dyspnea in setting of recent "URI": concern for Pulmonary Embolism, possible PNA. Other possibilities include CHF (though CXR not really suggestive). 2. Sinus tachycardia likely secondary to above processes 3. Elevated TnI REC: - CTA chest showed poor enhancement of pulmonary arteries, no PE + coronary calcifications - trop peak 0.48, EKG no ischemic changes - less likely ACS. dc heparin, plavix - coronary calcifications on CTA chest, echo with EF 45% with anteroseptal HK - continue aspirin, start statin. recommend stress test prior to discharge for evaluation for CAD - BNP elevated however imaging not c/w congestion, euvolemic on exam, defer diuretics - tracheal deviation on CXR, history of voice change - further imaging per primary - Abx as per ID
--- NOTE | 2019-04-30 10:35 | PN ---
Progress Note, Physician History of Present Illness: patient starting to feel better imaging studies done still needing oxygen voice still different - Current Medication List Current Medications: Active Medications Aspirin (Asa -) 81 mg PO DAILY [facility] Last Admin: 04/30/19 09:22 Dose: 81 mg Atorvastatin Calcium (Lipitor -) 80 mg PO HS [facility] Azithromycin (Zithromax 500mg Ivpb (Pre-Docked)) 500 mg in 250 mls @ 250 mls/ hr IVPB DAILY [facility] Last Admin: 04/30/19 09:22 Dose: 250 mls/hr Aztreonam 2 gm/ Dextrose 100 mls @ 100 mls/hr IVPB Q8H-IV [facility] Last Admin: 04/30/19 01:09 Dose: 100 mls/hr Methylprednisolone Sodium Succinate (Solu-Medrol -) 40 mg IVPUSH Q8H [facility] Last Admin: 04/30/19 09:22 Dose: 40 mg - Objective Vital Signs: Vital Signs Temperature 97.6 F 04/30/19 09:32 Pulse Rate 72 04/30/19 08:00 Respiratory Rate 18 04/30/19 08:00 Blood Pressure 115/79 04/30/19 08:00 O2 Sat by Pulse Oximetry (%) 98 04/30/19 09:00 Constitutional: Yes: No Distress, Calm Cardiovascular: Yes: Regular Rate and Rhythm Respiratory: Yes: Regular, On Nasal O2 Gastrointestinal: Yes: Normal Bowel Sounds, Soft Musculoskeletal: Yes: WNL Extremities: Yes: WNL Neurological: Yes: Alert, Oriented Psychiatric: Yes: Alert, Oriented Labs: CBC, BMP 04/30/19 04:00 04/30/19 04:00 INR, PTT INR 1.11 (0.83-1.09) H 04/29/19 19:00 Assessment/Plan 1. Acutely worsened dyspnea in setting of recent "URI": concern for Pulmonary Embolism, possible PNA. Other possibilities include CHF 2. Sinus tachycardia likely secondary to above processes 3. Elevated TnI 4 hoarseness plan continue to monitor off of abx cardiac on case consider ct scan of neck and soft tissues rest as per the team
[2019-04-30] MEDS ORDERED: ALBUTEROL SO4 2.5/IPRATROPIUM 0.5 INH SOL 3 ML VIAL.NEB. NEB PRN (15:09)
[2019-04-30] MEDS: ALBUTEROL SO4 2.5/IPRATROPIUM 0.5 INH SOL 3 ML VIAL.NEB. NEB SCH ×2 (19:45→22:18)
[2019-04-30] MEDS ORDERED: ATORVASTATIN CA 80 MG TABLET (FP) PO SCH (22:00)
[2019-05-01] MEDS: methylPREDNISolone NA SUCC 40 MG/1 ML VIAL IVPUSH SCH (05:57)
[2019-05-01 06:00] LABS: BASO % 0.3 % (0-2.0); HEMATOCRIT 43.6 % (35.4-49); HEMOGLOBIN 14.5 GM/dL (11.7-16.9); LYMPH % 3.3 % (8-40); MCH 29.1 pg (25.7-33.7); MCHC 33.3 g/dl (32.0-35.9); MEAN CELL VOLUME 87.4 fl (80-96); MEAN PLT VOLUME 8.7 fl (7.5-11.1); MONO % 5.5 % (3.8-10.2); NEUT % 90.9 % (42.8-82.8); PLATELET COUNT 252 K/MM3 (134-434); RBC 4.99 M/mm3 (4.00-5.60); RDW 14.1 % (11.9-15.9); WHITE BLOOD COUNT 16.1 K/mm3 (4.0-10.0)
[2019-05-01 06:28] LABS: ALBUMIN 3.4 g/dl (3.4-5.0); BILIRUBIN,TOTAL 0.7 mg/dL (0.2-1); BLOOD UREA NITROGEN 29.3 mg/dL (7-18); CALCIUM 8.7 mg/dL (8.5-10.1); CREATININE 0.9 mg/dL (0.55-1.3); MAGNESIUM 2.9 mg/dL (1.8-2.4); POTASSIUM 4.4 mmol/L (3.5-5.1); TOT PROT 6.6 g/dl (6.4-8.2)
--- NOTE | 2019-05-01 08:21 | PN ---
Progress Note, Physician Chief Complaint: seen and examined in ICU/ tele border O2 sat is 97-98% on 2LNC TELE: NSR with several runs NSVT (both 10 beats), one run [address]: no cervical deviation, dilatation of main PA--> Echo no gross RV enlargement/ No obvious PTHN but poor TR signal. CTA chest was negative for PE (technically difficult study). - Current Medication List Current Medications: Active Medications Albuterol/Ipratropium (Duoneb -) 1 amp NEB Q4H PRN PRN Reason: SHORTNESS OF BREATH Aspirin (Asa -) 81 mg PO DAILY [facility] Last Admin: 04/30/19 09:22 Dose: 81 mg Atorvastatin Calcium (Lipitor -) 80 mg PO HS [facility] Last Admin: 04/30/19 22:18 Dose: 80 mg Methylprednisolone Sodium Succinate (Solu-Medrol -) 40 mg IVPUSH Q12H [facility] Last Admin: 05/01/19 05:57 Dose: 40 mg - Objective Vital Signs: Vital Signs Temperature 98.5 F 05/01/19 05:00 Pulse Rate 63 05/01/19 05:00 Respiratory Rate 12 05/01/19 05:00 Blood Pressure 133/82 05/01/19 05:00 O2 Sat by Pulse Oximetry (%) 98 05/01/19 00:17 Constitutional: Yes: No Distress Eyes: Yes: Conjunctiva Clear Cardiovascular: Yes: Regular Rate and Rhythm Respiratory: Yes: Other (no rales or wheezing.) Gastrointestinal: Yes: Soft Edema: No Neurological: Yes: Alert, Oriented Labs: CBC, BMP 05/01/19 05:10 05/01/19 05:10 INR, PTT INR 1.11 (0.83-1.09) H 04/29/19 19:00 - ....Imaging EKG: Image Reviewed (as above) Assessment/Plan Assessment/Plan Echo: EF 45%, anteroseptal HK. No obvious RV enlargement or PHTN. No pericardial effusion. IMP: 1. Acutely worsened dyspnea in setting of recent "URI": concern for Pulmonary Embolism, possible PNA. Other possibilities include CHF (though CXR / exam not really suggestive). CTA no gross PE, CT neck dilated PA and elevated BNP. 2. Sinus tachycardia likely secondary to above processes (and possibly Albuterol ): Now resolved 3. Elevated TnI 4. NSVT REC: 1. Observe off abx as per ID. 2. Steroid taper, supplimental O2. 3. Cont ASA and statin. Heparin gtts was discontinued as our suspicion for active ischemia/ACS was low based on ECGs, flat enzyme trend. 4. Plan for ischemic evaluation when respiratory status improves/ returns to baseline (wall motion abn on echo, unclear if acute vs chronic) 5. Will consult Pulmonary re. dilated PA noted on neck CT- ? further imaging studies. ? Resume AC? 6. Several runs NSVT noted. K+ and Mg2+ are WNL. May be due to steroid/ albuterol effect. Will add low dose beta chito and continue telemetry
--- NOTE | 2019-05-01 09:14 | PN ---
Progress Note, Physician Chief Complaint: feeling better today but worried about his condition History of Present Illness: 68 year-old male who has not sought regular medical care for >10 years and reports no significant past medical history. Patient presented to ED last night for evaluation of shortness of breath. Patient relates that on 04/01/19 he went to an urgent care center for a persistent cough. He was diagnosed with acute bronchitis and was given prescriptions for prednisone, an albuterol inhaler, and a z-pack. The patient took the prednisone and used the inhaler but did not take the z-elaine. Symptoms of cough and wheezing persisted until 04/28 when he became acutely SOB prompting him to come to the ED. Patient denies fever, sweats , chills. Denies chest pain, palpitations, diaphoresis, orthopnea, and lower extremity edema. 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 Up until then he walked 12 miles per day on rounds. He has noticed decreased exercise tolerance over the past month. - Current Medication List Current Medications: Active Medications Albuterol/Ipratropium (Duoneb -) 1 amp NEB Q4H PRN PRN Reason: SHORTNESS OF BREATH Aspirin (Asa -) 81 mg PO DAILY [facility] Last Admin: 04/30/19 09:22 Dose: 81 mg Atorvastatin Calcium (Lipitor -) 80 mg PO HS [facility] Last Admin: 04/30/19 22:18 Dose: 80 mg Methylprednisolone Sodium Succinate (Solu-Medrol -) 40 mg IVPUSH Q12H [facility] Last Admin: 05/01/19 05:57 Dose: 40 mg Metoprolol Succinate (Toprol Xl -) 12.5 mg PO DAILY [facility] - Objective Vital Signs: Vital Signs Temperature 98.5 F 05/01/19 05:00 Pulse Rate 63 05/01/19 05:00 Respiratory Rate 12 05/01/19 05:00 Blood Pressure 133/82 05/01/19 05:00 O2 Sat by Pulse Oximetry (%) 98 05/01/19 00:17 Constitutional: Yes: Well Nourished, No Distress, Calm (about his condition), Anxious Eyes: Yes: WNL, Conjunctiva Clear, EOM Intact HENT: Yes: WNL, Atraumatic, Normocephalic Neck: Yes: WNL, Supple, Trachea Midline Cardiovascular: Yes: WNL (ventricular ectopy on CM) Labs: CBC, BMP 05/01/19 05:10 05/01/19 05:10 INR, PTT INR 1.11 (0.83-1.09) H 04/29/19 19:00 Problem List - Problems (1) Elevated troponin I level Code(s): R74.8 - ABNORMAL LEVELS OF OTHER SERUM ENZYMES (2) Respiratory failure Code(s): J96.90 - RESPIRATORY FAILURE, UNSP, UNSP W HYPOXIA OR HYPERCAPNIA (3) Prophylactic measure Code(s): Z29.9 - ENCOUNTER FOR PROPHYLACTIC MEASURES, UNSPECIFIED (4) Tracheal deviation Code(s): J39.8 - OTHER SPECIFIED DISEASES OF UPPER RESPIRATORY TRACT (5) Phonation disorder Code(s): R49.0 - DYSPHONIA (6) Breathing difficulty Code(s): R06.89 - OTHER ABNORMALITIES OF BREATHING (7) CAD (coronary artery disease) Code(s): I25.10 - ATHSCL HEART DISEASE OF [place] CORONARY ARTERY W/O ANG PCTRS
[2019-05-01] MEDS: ASPIRIN 81 MG CHEWABLE TABLETS PO SCH (09:55)
[2019-05-01] MEDS ORDERED: metoPROLOL SUCCINATE 25 MG TAB.SR.24H (FP) PO SCH (10:00)
--- NOTE | 2019-05-01 10:54 | CON.PULM ---
Consult Consult Specialty:: PULM/CCM Referred by:: GREGORY Reason for Consultation:: Abnormal CT - History of Present Illness Chief Complaint: SOB History of Present Illness: 68 M, non-smoker, remote history of seizure disorder, non-compliant with routine medical follow up. (+) snoring history and intermittent history of Excessive Daytime Sleepiness. Admitted via the ER due to ongoing URI symptoms for the past several weeks. He was diagnosed with bronchitis and treated with steroids, ABX, and nebs by urgent care. Due to continued SOB he presented to the ER. No travel history or sick contacts. No fever or chills. CTA: No evidence of PE CT Neck: (?) dilated PA Echo: EF 45%. Possible anteroseptal wall motion abnormality. 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, Other (no seizures since 1970s) Cardio/Vascular: Yes: Other (Mitral Valve prolapse diagnosed years ago, not appreciated on current Echo) Pulmonary: No: Asthma, Bronchitis, Cancer, COPD, O2 Dependent, Pneumonia, Previously Intubated, Pulmonary Embolus, Pulmonary Fibrosis, Sleep Apnea, Other Gastrointestinal: No: Ascites, Cancer, Constipation, Crohn's Disease, Diverticulitis, Diverticulosis, Esophageal Varices, Gastritis, GERD, GI Bleed, Hemorrhoids, Hiatal Hernia, Inflamatory Bowel Disease, Irritable Bowel Disease, Pancreatitis, Peptic Ulcer Disease, Ulcerative Colitis, Other Hepatobiliary: No: Cirrhosis, Cholelithiasis, Cholecystitis, Choledocholithiasis , Hepatitis A, Hepatitis B, Hepatitis C, Other Renal/: No: Renal Failure, Renal Inusuff, BPH, Cancer, Hematuria, Hemodialysis , Neurogenic Bladder, Renal Calculi, UTI, Other Infectious Disease: No: AIDS, C-Diff, Herpes Zoster, HIV, MRSA, STD's, Tuberculosis, VREF, Other Psych: No: Addictions, Anxiety, Bipolar, Depression, Panic, Psychosis, Schizophrenia, Other Musculoskeletal: No: Bursitis, Chronic low back pain, Hemiparesis, Hemiplegia, Osteoarthritis, Paraplegia, Other Rheumatology: No: Fibromyalgia, Gout, Lupus, Rheumatoid Arthritis, Sarcoidosis, Vasculitis, Other ENT: No: Allergic Rhinitis, Sinusitis, Other Endocrine: No: Chambers's Disease, Sherice's Disease, Diabetes Insipidus, Diabetes Mellitus, Hyperparathyroidism, Hyperthyroidism, Hypothyroidism, Osteopenia, SIADH, Other Dermatology: No: Basal Cell, Cellulitis, Eczema, Melanoma, Psoriasis, Squamous Cell, Other - Past Surgical History Past Surgical History: No: None, AAA Repair, AICD, Amputation, Appendectomy, Arthrosocopy, AV Fistula/Graft, Bariatric Surgery, Breast Biopsy, Bypass, CABG, Carotid Endarterectomy, Cataract Removal, Cholecystectomy, Colectomy, Colonoscopy, Colostomy, Craniotomy, , Cystectomy, Hernia Repair, Hysterectomy, Ileal Conduit, Ileosotomy, Joint Replacement, Kidney Transplant, Laminectomy, Liver Transplant, Mastectomy, Nephrectomy, Oopherectomy, Orchiectomy, Permanent Pacemaker, Prostatectomy, Splenectomy, Stent, Thoracotomy , TURP, Tonsillectomy, Tubal Ligation, Upper Endoscopy, Valve Replacement, Vasectomy, Vein Stripping/Ligation - Alcohol/Substance Use Hx Alcohol Use: Yes (OCCASIONAL) History of Substance Use: reports: None - Smoking History Smoking history: Unknown if ever smoked Have you smoked in the past 12 months: No Aproximately how many cigarettes per day: 0 - Social History Usual Living Arrangement: Alone History of Recent Travel: No (no prolonged air/car travel) Home Medications - Allergies Allergies/Adverse Reactions: Allergies Allergy/AdvReac Type Severity Reaction Status Date / Time amoxicillin [Amoxicillin] Allergy Verified 04/29/19 02:28 - Home Medications Home Medications: Ambulatory Orders Albuterol Sulfate Inhaler - [Ventolin Hfa Inhaler -] 1 - 2 inh PO QID 04/29/19 Review of Systems - Review of Systems Constitutional: reports: Fever, Malaise. denies: Chills, Night Sweats, Unintentional Wgt. Loss Eyes: reports: No Symptoms HENT: reports: No Symptoms Neck: reports: No Symptoms Cardiovascular: reports: Shortness of Breath. denies: Chest Pain, Edema, Palpitations Respiratory: reports: Cough, Snoring, SOB, SOB on Exertion. denies: Hemoptysis , Orthopnea, Wheezing Gastrointestinal: reports: No Symptoms Genitourinary: reports: No Symptoms Breasts: reports: No Symptoms Reported Musculoskeletal: reports: No Symptoms Integumentary: reports: No Symptoms Neurological: reports: No Symptoms Endocrine: reports: No Symptoms Hematology/Lymphatic: reports: No Symptoms Psychiatric: reports: No Symptoms Physical Exam Vital Sings: Vital Signs Temperature 98.5 F 05/01/19 05:00 Pulse Rate 63 05/01/19 05:00 Respiratory Rate 12 05/01/19 05:00 Blood Pressure 133/82 05/01/19 05:00 O2 Sat by Pulse Oximetry (%) 98 05/01/19 00:17 Constitutional: Yes: No Distress, Calm Eyes: Yes: Conjunctiva Clear, EOM Intact HENT: Yes: Atraumatic, Normocephalic Neck: Yes: Supple, Trachea Midline Cardiovascular: Yes: Regular Rate and Rhythm Respiratory: Yes: Cough, Diminished, On Nasal O2, Rhonchi, SOB, SOB on Exertion. No: Accessory Muscle Use, Rales, Stridor, Tachypnea, Wheezes ...Inspection: Yes: WNL ...Clubbing: No Gastrointestinal: Yes: Normal Bowel Sounds, Soft Renal/: Yes: WNL Breast(s): Yes: WNL Musculoskeletal: Yes: WNL Extremities: Yes: WNL Edema: No Peripheral Pulses WNL: Yes Integumentary: Yes: WNL Neurological: Yes: WNL, Alert, Oriented ...Motor Strength: WNL Psychiatric: Yes: WNL, Alert, Oriented Labs: CBC, BMP 05/01/19 05:10 05/01/19 05:10 ABG Results ABG pH 7.41 (7.35-7.45) 04/29/19 12:50 ABG pCO2 at Pt Temp 36.5 mmHg (35-45) 04/29/19 12:50 ABG pO2 at Pt Temp 136 mmHg (80-105) H 04/29/19 12:50 ABG HCO3 22.9 mmol/L (22-27) 04/29/19 12:50 ABG O2 Sat (Measured) 99.1 % (95-98) H 04/29/19 12:50 ABG O2 Content 22.7 % vol (15-22) H 04/29/19 12:50 ABG Base Excess -0.6 meq/l (-2-2) 04/29/19 12:50 Imaging - Results Chest X-ray: Report Reviewed, Image Reviewed Cat Scan: Report Reviewed, Image Reviewed Problem List - Problems (1) Breathing difficulty Code(s): R06.89 - OTHER ABNORMALITIES OF BREATHING (2) CAD (coronary artery disease) Code(s): I25.10 - ATHSCL HEART DISEASE OF [place] CORONARY ARTERY W/O ANG PCTRS (3) Elevated troponin I level Code(s): R74.8 - ABNORMAL LEVELS OF OTHER SERUM ENZYMES (4) Viral upper respiratory illness Code(s): J06.9 - ACUTE UPPER RESPIRATORY INFECTION, UNSPECIFIED Assessment/Plan IMP: R/O OSAS Resolving URI PE was ruled out PLAN: D/W Cardiology: will AC with Lovenox for possible ongoing ACS Will need ischemic workup Sleep screen O2 as needed to maintain saturation Will need outpatient PFTs PO as tolerated Medrol BD TX PRN Will follow Thank you. Dr Hernandez
[2019-05-01] MEDS ORDERED: CLOPIDOGREL BISULFATE 75 MG TABLET (FP) PO SCH (11:00)
[2019-05-01] MEDS ORDERED: HEPARIN NA (PORCINE) 5,000 UNITS/ML 1ML VIAL IVPUSH PRN ×2 (11:23)
--- NOTE | 2019-05-01 11:23 | PN ---
Progress Note (short form) - Note Progress Note: 12 lead ECG repeated and shows new TWI in anterior precordial leads. D/W Dr. Hernandez and patient, will resume AC and Plavix. Recommend transfer for cardiac cath- will arrange for Tx to [facility]
[2019-05-01] MEDS ORDERED: HEPARIN - 25,000 UNIT in SODIUM CHLORIDE 495 ML IV SCH (11:30)
[2019-05-01] MEDS ORDERED: PT OWN MED DRAWER 7, Y5N ONE (12:51)
--- NOTE | 2019-05-01 13:27 | PN ---
Progress Note, Physician History of Present Illness: stable no new issues feels better - Current Medication List Current Medications: Active Medications Albuterol/Ipratropium (Duoneb -) 1 amp NEB Q4H PRN PRN Reason: SHORTNESS OF BREATH Aspirin (Asa -) 81 mg PO DAILY [facility] Last Admin: 05/01/19 09:55 Dose: 81 mg Atorvastatin Calcium (Lipitor -) 80 mg PO HS [facility] Last Admin: 04/30/19 22:18 Dose: 80 mg Clopidogrel Bisulfate (Plavix -) 75 mg PO DAILY [facility] Last Admin: 05/01/19 11:37 Dose: 75 mg Heparin Sodium (Porcine) (Heparin -) 1,000 unit IVPUSH PRN PRN PRN Reason: Heparin Heparin Sodium (Porcine) (Heparin -) 5,000 unit IVPUSH PRN PRN PRN Reason: Heparin Heparin Sodium (Porcine) 25, (000 unit/ Sodium Chloride) 500 mls @ 20 mls/hr IV TITR [facility]; Protocol Last Admin: 05/01/19 12:53 Dose: 1,000 unit/hr, 20 mls/hr Methylprednisolone Sodium Succinate (Solu-Medrol -) 40 mg IVPUSH DAILY [facility] Metoprolol Succinate (Toprol Xl -) 12.5 mg PO DAILY [facility] Last Admin: 05/01/19 09:55 Dose: 12.5 mg - Objective Vital Signs: Vital Signs Temperature 98.4 F 05/01/19 10:00 Pulse Rate 92 H 05/01/19 10:00 Respiratory Rate 15 05/01/19 10:00 Blood Pressure 133/81 05/01/19 10:00 O2 Sat by Pulse Oximetry (%) 98 05/01/19 10:00 Constitutional: Yes: No Distress, Calm Neck: Yes: Supple, Trachea Midline Cardiovascular: Yes: Regular Rate and Rhythm Gastrointestinal: Yes: Normal Bowel Sounds, Soft Musculoskeletal: Yes: WNL Extremities: Yes: WNL Neurological: Yes: Alert, Oriented Labs: CBC, BMP 05/01/19 05:10 05/01/19 05:10 INR, PTT INR 1.11 (0.83-1.09) H 04/29/19 19:00 - ....Imaging Cat Scan: Report Reviewed, Image Reviewed Assessment/Plan 1. Acutely worsened dyspnea in setting of recent "URI": concern for Pulmonary Embolism, possible PNA. Other possibilities include CHF 2. Sinus tachycardia likely secondary to above processes 3. Elevated TnI 4 hoarseness plan continue to monitor off of abx cardiac on case ct seen results noted pul on case
--- NOTE | 2019-05-01 13:28 | DS ---
Physical Examination Vital Signs: Vital Signs Temperature 98.4 F 05/01/19 10:00 Pulse Rate 92 H 05/01/19 10:00 Respiratory Rate 15 05/01/19 10:00 Blood Pressure 133/81 05/01/19 10:00 O2 Sat by Pulse Oximetry (%) 98 05/01/19 10:00 Constitutional: Yes: Well Nourished, No Distress, Calm Eyes: Yes: WNL, Conjunctiva Clear, EOM Intact HENT: Yes: WNL, Atraumatic, Normocephalic Neck: Yes: WNL, Supple, Trachea Midline Cardiovascular: Yes: WNL, Regular Rate and Rhythm, Other (ectopy on CM) Respiratory: Yes: WNL, Regular, Diminished (at bases) Gastrointestinal: Yes: WNL, Normal Bowel Sounds Renal/: Yes: WNL Musculoskeletal: Yes: WNL Extremities: Yes: WNL Edema: No Peripheral Pulses WNL: Yes Integumentary: Yes: WNL Neurological: Yes: WNL, Alert, Oriented ...Motor Strength: WNL Psychiatric: Yes: WNL, Alert, Oriented Labs: CBC, BMP 05/01/19 05:10 05/01/19 05:10 Discharge Summary Reason For Visit: DIFFICULTY BREATHING Current Active Problems Breathing difficulty (Acute) CAD (coronary artery disease) (Acute) Elevated troponin I level (Acute) Phonation disorder (Acute) Prophylactic measure (Acute) Respiratory failure (Acute) Tracheal deviation (Acute) Hospital Course: 68 year-old male who has not sought regular medical care for >10 years and reports no significant past medical history. Patient presented to [facility] ED om 04/29 for evaluation of shortness of breath. Patient relates that on he went to an urgent care center for a persistent cough. He was diagnosed with acute bronchitis and was given prescriptions for prednisone, an albuterol inhaler, and a z-pack. The patient took the prednisone and used the inhaler but did not take the z-elaine. Symptoms of cough and wheezing persisted until last night when he became acutely SOB prompting him to come to the ED. Patient denies fever, sweats, chills. Denies chest pain, palpitations, diaphoresis, orthopnea, and lower extremity edema. 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 Up until then he walked 12 miles per day on rounds. He states that when walking up hills he noted substernal pain that he states was his "arthritis" No follow up cardiac care and last ST was in late and claimed it was "OK". He has noticed decreased exercise tolerance over the past month. Transfered to [facility] for higher level of care. Chest X-ray: Report Reviewed (Single AP view of the chest reveals an apical lordotic projection, normal heart, normal aorta and normal eber. The lungs are expanded with no sign of infiltrate or failure. There is some increased density seen by the anterior aspect of the left first rib and this is unchanged from the previous study dated 11/29/2012. This is related to the anterior rib margin. Costophrenic angles are sharp. The soft tissues are intact. There are degenerative spine and shoulder changes. Correlation recommended.), Image Reviewed Cat Scan: Report Reviewed (CTA showed no gross filling defects.) Problem List - Problems (1) Elevated troponin I level Assessment/Plan: elevated troponins in setting of tachycardia and tracheal deviation started on UFH infusion and plavix loaded. UFH stopped after CTA negative and tropnonins trended down. peak of .43, tending down to .23 TTE EF 45%, anteroseptal HK. No obvious RV enlargement or PHTN. No pericardial effusion. ASA and statin continues throughout stay Code(s): R74.8 - ABNORMAL LEVELS OF OTHER SERUM ENZYMES (2) Respiratory failure Assessment/Plan: maintain O2 % >92 on NC @ 2L inhaled broncholdilators abx x 48hours. No leukocytosis, afebrile. STopped 04/30 and -will continue to monitor Code(s): J96.90 - RESPIRATORY FAILURE, UNSP, UNSP W HYPOXIA OR HYPERCAPNIA (3) Prophylactic measure Assessment/Plan: FEN low fat low chosterol diet UFH retsrated 05/01 DVT continue asa UFH gtt Dispo maintain as inpatient on telemetry in ICU full code discharge planning Code(s): Z29.9 - ENCOUNTER FOR PROPHYLACTIC MEASURES, UNSPECIFIED (4) Tracheal deviation Assessment/Plan: tracheal deviation seen on CXR, no mention on CT will obtain neck/soft tissue CT to assess for mass no difficulty swallowing but change in phonation will continue steroids and taper to off- mass is seen on neck CT. Solumderol decreased to 40mg qd on 05/01 Code(s): J39.8 - OTHER SPECIFIED DISEASES OF UPPER RESPIRATORY TRACT (5) Phonation disorder Assessment/Plan: CT neck/soft tissue neagtive speech and swallow consultation if dysphagia occurs Code(s): R49.0 - DYSPHONIA (6) Breathing difficulty Assessment/Plan: maintain O2 sats >92% BNP 5038 on admission, 6152 05/01 lasix IV BID bronchodilators prn Code(s): R06.89 - OTHER ABNORMALITIES OF BREATHING (7) CAD (coronary artery disease) Assessment/Plan: Coronary calcifications on CTA chest, echo with EF 45% with anteroseptal HK continue aspirin, start statin 12 lead ECG repeated and shows new TWI in anterior precordial lead Plan to transfer to [facility] for cardiac cath and further managment Code(s): I25.10 - ATHSCL HEART DISEASE OF [place] CORONARY ARTERY W/O ANG PCTRS Condition: Guarded - Instructions - Home Medications Comprehensive Discharge Medication List: Ambulatory Orders Albuterol 2.5/Ipratropium 0.5 [Duoneb -] 1 amp NEB Q4H PRN amp 05/01/19 Aspirin [ASA -] 81 mg PO DAILY tab.chew 05/01/19 Atorvastatin Ca [Lipitor] 80 mg PO HS tablet 05/01/19 Clopidogrel Bisulfate [Plavix -] 75 mg PO DAILY tablet 05/01/19 Heparin - 25,000 unit IV TITR vial 05/01/19 Methylprednisolone Na Succ [Solu-Medrol -] 40 mg IVPUSH DAILY vial 05/01/19 Metoprolol Succinate [Toprol XL -] 12.5 mg PO DAILY tab.sr.24h 05/01/19 This patient is new to me today: No Emergency Visit: Yes ED Registration Date: 04/29/19 Care time: The patient presented to the Emergency Department on the above date and was hospitalized for further evaluation of their emergent condition. Critical Care patient: Yes Total Critical Care Time (in minutes): 60 Critical Care Statement: The care of this patient involved high complexity decision making to prevent further life threatening deterioration of the patient 's condition and/or to evaluate & treat vital organ system(s) failure or risk of failure. - Discharge Referral Referred to [facility] Med [facility].: No
[2019-05-01 15:12] VITALS: TEMP 98.3
--- NOTE | 2019-05-01 16:53 | EKG ---
Test Reason : Blood Pressure : / mmHG Vent. Rate : 086 BPM Atrial Rate : 086 BPM P-R Int : 178 ms QRS Dur : 094 ms QT Int : 426 ms P-R-T Axes : 049 -13 079 degrees QTc Int : 509 ms NORMAL SINUS RHYTHM POSSIBLE LEFT ATRIAL ENLARGEMENT LEFT VENTRICULAR HYPERTROPHY NONSPECIFIC T WAVE ABNORMALITY PROLONGED QT ABNORMAL ECG WHEN COMPARED WITH ECG OF 29-APR-2019 10:41, FUSION COMPLEXES ARE NO LONGER PRESENT PREMATURE VENTRICULAR COMPLEXES ARE NO LONGER PRESENT NONSPECIFIC T WAVE ABNORMALITY NO LONGER EVIDENT IN INFERIOR LEADS T WAVE INVERSION NOW EVIDENT IN ANTERIOR LEADS Confirmed by MELI CHAPARRO MD ([id number]) on 05/01/2019 4:52:38 PM Referred By: Confirmed By:MELI CHAPARRO MD
[2019-05-01 17:00] VITALS: BP 124/85; PULSE 98
[2019-05-02] MEDS ORDERED: methylPREDNISolone NA SUCC 40 MG/1 ML VIAL IVPUSH SCH (10:00)
== END 2019-05-01 17:00 | disposition short-term general hospital (02) | DRG 280 ==
LOC: FER 02:25 → FM/S 04:05 → UNDOADMIN 04:48 → FM/S 04:48 → J2W 15:58
PROVIDERS: ADMIT Internal Medicine; ATTEND Nurse Practitioner Acute Care
DX: I21.4 Non-ST elevation (NSTEMI) myocardial infarction (principal); J96.90 Respiratory failure, unspecified, unspecified whether with hypoxia or hypercapnia; J06.9 Acute upper respiratory infection, unspecified; R00.0 Tachycardia, unspecified; I25.10 Atherosclerotic heart disease of native coronary artery without angina pectoris; R06.00 Dyspnea, unspecified; E66.8 Other obesity; Z68.32 Body mass index [BMI] 32.0-32.9, adult; R74.8 Abnormal levels of other serum enzymes; J39.8 Other specified diseases of upper respiratory tract; R49.0 Dysphonia; R06.89 Other abnormalities of breathing
CPT/HCPCS: 36415; 36600; 70492-TC; 71045-TC-FY; 71275-TC; 74177-TC; 80053; 81003; 81015; 82375; 82550; 82553; 82803; 83050; 83605; 83615; 83735; 83880; 84484; 85025; 85610; 85651; 85730; 86140; 87040; 87070; 87086; 87205; 87804; 87899; 93005; 93010; 93306-TC; 94640; 99283-25; J1644

== ENCOUNTER 2021-11-27 01:36 | Emergency (ER) | payer OTHER ==
[2021-11-27 02:00] VITALS: BP 128/76; PULSE 94; TEMP 98.3; BMI 32.3
== END 2021-11-27 02:04 | disposition home or self-care (01) ==
LOC: FER 01:36
DX: S30.1XXA Contusion of abdominal wall, initial encounter (principal); Y99.8 Other external cause status
CPT/HCPCS: 99282-25

== ENCOUNTER 2024-09-07 19:52 | Emergency (ER) | payer OTHER ==
[2024-09-07 20:24] VITALS: BP 130/82; PULSE 84; RESP 16; TEMP 100; BMI 31.4
[2024-09-07] MEDS ORDERED: DEXAMETHASONE 4 MG TABLET (FP) ONE (20:38)
[2024-09-07] MEDS: DEXAMETHASONE 4 MG TABLET (FP) PO ONE (20:40)
[2024-09-07] MEDS: AZITHROMYCIN 500 MG TABLET PO ONE (20:45)
== END 2024-09-07 21:42 | disposition home or self-care (01) ==
LOC: FER 19:52
DX: R05.9 Cough, unspecified (principal); R50.9 Fever, unspecified; J06.9 Acute upper respiratory infection, unspecified; Z20.822 Contact with and (suspected) exposure to COVID-19
CPT/HCPCS: 0241U-QW; 71046-TC-FY; 99284-25

== ENCOUNTER 2025-07-16 16:33 | Emergency (ER) | payer OTHER ==
[2025-07-16 17:24] VITALS: BP 125/74; PULSE 83; RESP 18; TEMP 98.2; BMI 32.3
== END 2025-07-16 17:25 | disposition home or self-care (01) ==
LOC: FER 16:33
DX: R05.9 Cough, unspecified (principal); R09.81 Nasal congestion; R50.9 Fever, unspecified; J06.9 Acute upper respiratory infection, unspecified
CPT/HCPCS: 99283-25